=== PATIENT | male | born 1955 | race Caucasian/White ===

== ENCOUNTER → 2023-04-30 07:08 | Outpatient (REF) | payer MEDICARE, OTHER, SELFPAY | LOC: PAVMRI 07:08 | PROVIDERS: ATTENDING PHYSICIAN Orthopaedic Surgery | DX: M25.562 Pain in left knee (principal); M25.561 Pain in right knee | CPT/HCPCS: 73721 ==

== ENCOUNTER 2024-04-27 06:53 | Emergency (ER) | payer MEDICARE, OTHER, SELFPAY ==
[2024-04-27 06:56] VITALS: BP 127/79
--- NOTE | 2024-04-27 08:40 | ED.GENMED ---
History of Present Illness
<Maura Gonzalez PA-C - Last Filed: 04/27/24 16:20>
General
Chief Complaint: Fall
Source: patient
Exam Limitations: none
Time Seen by Provider: 04/27/24 08:28
Nursing documentation reviewed up to this point in time: agreed with
History of Present Illness
History of Present Illness:
69 y/o M with h/o BPH
on baby ASA
mechanical fall this morning 530 am when he went to check on his dog
he missed a step and fell about 6-7 stpes down and grabbed onto the railing but landed on his L hip. he was able to get himself up, no head strike, no LOC, no neck pain, no back pain
but he has a large hematoma to L lateral hip region that feels tight. no bleeding, numbness, weakness, tingling, groin pain
he has no distal nv chaanges
no AC
nothing taken for pain
He had a Mohs surgery to his left scalp 3 weeks ago which is still bandaged, and he also had a lesion removed from his left back 2 days ago that was glued, the wound did not open up and he has no complaints
Past History
<Maura Gonzalez PA-C - Last Filed: 04/27/24 16:20>
Past History
ED Past Medical History: Hypercholesterolemia and Other (prostate)
ED Past Surgical History: Orthopedic
Social History
Tobacco: Non-smoker
Family History
Family History: CAD
Review of Systems
<SHAINA Larose Last Filed: 04/27/24 16:20>
Review of Systems
Allergies reviewed?: Yes
All Other Systems: Not applicable
Phy Exam
<SHAINA Larose Last Filed: 04/27/24 16:20>
Physical Exam
Physical Exam:
GENERAL: Alert , in no apparent distress
HEAD: NCAT
Scalp lesion bandaged left frontal
NECK: no midline tenderness, active ROM intact, no paraspinal muscle tenderness;
EYE: pupils equal and reactive, EOMs intact.
ENT: o/p clr, mmm. no hemotympanum
CARDIAC: Regular rate and rhythm, no edema
LUNGS: Clear breath sounds bilaterally, no acute respiratory distress, no wheezes/rales/rhonchi
ABDOMEN: Soft, without focal tenderness, no r/g, no cvat no other signs of trauma
NEUROLOGICAL: Alert and oriented, no focal neuro deficits, CN intact, 5/5 strength, sensation intact
SKIN: Warm and dry,
Long incision left upper back closed and not bleeding and nontender
MUSCULOSKELETAL: On inspection patient has a large hematoma measuring about 20 x 15 cm to the left lateral greater trochanter region which is firm, the compartment of the thigh and distal lower extremity are soft, he is neurovascularly intact with a
strong femoral and DP pulse, I am able to range his hip, he said discomfort with internal and external rotation but no significant pain
No other signs of trauma
PSYCH: Normal and appropriate interaction.
Course
<Maura Gonzalez PA-C - Last Filed: 04/27/24 16:20>
Orders/Labs/Results
Orders:
Orders
04/27/24 07:04
CR Femur - Left Min 2 Vw Urgent
Comment:
Reason For Exam: fall, swelling, pain
CR Pelvis - 1 Or 2 Views Urgent
Comment:
Reason For Exam: fall, swelling, pain
04/27/24 08:40
CT Lower Ext W/iv Cont Lt Urgent
Comment:
Reason For Exam: L lateral hip hematoma fall
04/27/24 08:45
Acetaminophen [Tylenol] 650 mg PO NOW STA
04/27/24 08:47
Complete Blood Count/With Diff Urgent
Comprehensive Metabolic Panel Urgent
PTT Urgent
Prothrombin Time Urgent
04/27/24 13:56
H&H Urgent
Abnormal Lab Results
04/27/24
08:47
WBC 11.4 H 10^3/uL
(4.8-10.8)
MCH 31.8 H pg
(27.0-31.0)
MPV 10.6 H fL
(7.4-10.4)
Absolute Neuts (auto) 10.0 H 10^3/uL
(1.4-6.5)
Absolute Lymphs (auto) 0.7 L 10^3/uL
(1.2-3.4)
Neutrophils % 88.1 H %
(42.2-75.2)
Lymphocytes % 6.3 L %
(20.5-51.1)
BUN 23 H mg/dl
(9-20)
Glucose 110 H mg/dl
(70-99)
04/27/24 13:56
04/27/24 08:47
Vital Signs
Initial and Last Documented VS:
Initial Vital Signs
Temp Pulse Resp BP Pulse Ox
36.6 C 95 18 127/79 98
04/27/24 06:56 04/27/24 06:56 04/27/24 06:56 04/27/24 06:56 04/27/24 06:56
Last Documented Vital Signs
Temp Pulse Resp BP Pulse Ox
36.6 C 95 18 128/76 96
04/27/24 06:56 04/27/24 06:56 04/27/24 06:56 04/27/24 14:00 04/27/24 14:15
<Shivam Mahmood MD - Last Filed: 04/27/24 08:50>
Orders/Labs/Results
Orders:
Orders
04/27/24 07:04
CR Femur - Left Min 2 Vw Urgent
Comment:
Reason For Exam: fall, swelling, pain
CR Pelvis - 1 Or 2 Views Urgent
Comment:
Reason For Exam: fall, swelling, pain
04/27/24 08:40
CT Lower Ext W/iv Cont Lt Urgent
Comment:
Reason For Exam: L lateral hip hematoma fall
04/27/24 08:45
Acetaminophen [Tylenol] 650 mg PO NOW STA
04/27/24 08:47
Complete Blood Count/With Diff Urgent
Comprehensive Metabolic Panel Urgent
PTT Urgent
Prothrombin Time Urgent
04/27/24 13:56
H&H Urgent
Abnormal Lab Results
04/27/24
08:47
WBC 11.4 H 10^3/uL
(4.8-10.8)
MCH 31.8 H pg
(27.0-31.0)
MPV 10.6 H fL
(7.4-10.4)
Absolute Neuts (auto) 10.0 H 10^3/uL
(1.4-6.5)
Absolute Lymphs (auto) 0.7 L 10^3/uL
(1.2-3.4)
Neutrophils % 88.1 H %
(42.2-75.2)
Lymphocytes % 6.3 L %
(20.5-51.1)
BUN 23 H mg/dl
(9-20)
Glucose 110 H mg/dl
(70-99)
04/27/24 13:56
04/27/24 08:47
Vital Signs
Initial and Last Documented VS:
Initial Vital Signs
Temp Pulse Resp BP Pulse Ox
36.6 C 95 18 127/79 98
04/27/24 06:56 04/27/24 06:56 04/27/24 06:56 04/27/24 06:56 04/27/24 06:56
Last Documented Vital Signs
Temp Pulse Resp BP Pulse Ox
36.6 C 95 18 128/76 96
04/27/24 06:56 04/27/24 06:56 04/27/24 06:56 04/27/24 14:00 04/27/24 14:15
<Maura Gonzalez PA-C - Last Filed: 04/27/24 16:20>
MDM/Problems Addressed
Differential Diagnosis Includes:
hematoma, active hemorrhage, fracture
MDM/Problems Addressed:
9-year-old male not anticoagulated but on a baby aspirin presents for a left hip swelling after mechanical fall down about 6 steps landing on the hip. He did not strike his head or back. He has been able to get up and walk on it but he had a
developing hematoma that is rather large. He is not having any paresthesias, cold foot, or significant pain with movement. On exam he does have about a 20 x 15 cm size hematoma with a central area of ecchymosis, it is firm but the compartment in
the posterior thigh and distally is all normal. He is neurovascularly intact. He was seen by the ED attending. The x-rays were independently reviewed by me and no fracture was identified. I am aware that he is not anticoagulated but given his
degree of swelling just a few hours after the injury we did do a CT with IV contrast which does show a large hematoma with a small amount of active hemorrhage. This was discussed with the patient as well as with Dr. Mahmood.
The patient was offered an observation admission. He felt comfortable going home but his was a little nervous. We did repeat his H&H which was over 4 hours from the initial CBC, his initial hemoglobin was 15.0 and his second hemoglobin was
14.6. I wisam a line around the hematoma and it has not expanded, and has been wrapped in a compression dressing since he arrived except for time when he had ice on it.
With this the patient did feel reassured that would like to go home but will return for any signs of compartment syndrome which was discussed with the patient
<Maura Gonzalez PA-C - Last Filed: 04/27/24 16:20>
*Critical Care Note
Total Time (30-74mins, 75-104mins- exclusive of procedures): Not Applicable
ED Attending Note
<Maura Gonzalez PA-C - Last Filed: 04/27/24 16:20>
-
Portions of this chart may have been created with voice recognition software.� Occasional wrong word or��sound alike� substitutions may have occurred due to the inherent limitations of voice recognition software.
<Shivam Mahmood MD - Last Filed: 04/27/24 08:50>
ED Attending Note
Patient seen and examined by attending physician: Yes
ED Attending Note:
I have seen and evaluated the patient with a [id number] encounter. I have spoken to the advance practicer provider and involved in the medical history, the physical exam, medical decision making.
Evaluation and management service: agree unless noted differently below.
Results interpretation: agree unless noted differently below.
Focused HPI: 69-year-old male with history as noted presents for evaluation after a fall down about 5 steps. Landed on his left hip. He did catch himself did not hit his head or sustain any other serious injuries but he has a lot of pain and
swelling in his left lateral hip and came to the ER for assessment. He has been able to walk/bear weight. Denies headache, neck pain, back pain, rib pain or any other complaints. He is on aspirin but no other blood thinners.
Physical exam: Awake alert no distress. He has prior Mohs surgery on left forehead and healing incision on left back from dermatologic excision. He has no signs of trauma the head. He has no signs of trauma to the chest, abdomen, back. No
tenderness in the ribs, abdomen, back or flank. He has no tenderness in the cervical spine. His upper extremities are atraumatic. On exam of his left lower extremity has a large hematoma left lateral hip over the greater trochanter. Bruising
this area and tenderness. No signs of trauma the rest of the extremities. Allows for full range of motion of the left hip. Strong distal pulse left lower extremity DP and PT.
Medical Decision Makin-year-old male presents for evaluation of left hip pain and swelling after a fall. X-rays in triage of the pelvis and femur reviewed by me showed no acute fracture. Given rapid progression and large hematoma on exam we
will check CT to rule out any active extravasation. Place Srinivas wrap for compression. Reassess after above.
Discharge Plan
Departure
Patient Disposition: Home (Routine Discharge)
Date of Disposition: 04/27/24
Time of Disposition: 14:44
Patient with high blood pressure during this ER visit?: No
Condition: Fair
Covid-19: Not Applicable
Discharge Problem:
Hematoma of left hip
Instructions: Minor contusion - ED discharge instructions, Contusion
Prescriptions:
No Action
atorvastatin 40 mg Tablet
40 mg PO DAILY
aspirin 81 mg Tablet
81 mg PO DAILY
diltiazem HCl 120 mg Capsule,Extended Release 24hr
120 mg PO DAILY Qty: 30 0RF
tamsulosin [Flomax] 0.4 mg Capsule
0.4 mg PO HS Qty: 0 0RF
finasteride 5 mg Tablet
5 mg PO HS Qty: 0 0RF
Referrals:
NONE,* [Family Provider] -
Activity Restrictions/Additional Instructions:
YOU HAVE A LARGE HEMATOMA FROM YORU FALL BUT NO UNDERLYING FRACTURE
PLEASE WATCH YOUR SWELLING VERY CLOSELY
THERE IS A SMALL AMOUNT OF ACTIVE BLEEDING WITHIN THE CENTER OF THE HEMATOMA - IF YOUR SWELLING GETS LARGER, YOU SHOULD RETURN
YOU CAN ALSO RETUR NFOR NUMBNESS/TINGLING/WEAKNESS IN THE LEG, SEVERE PAIN IN THE LEG, COLOR CHANGE/COOLNESS, ETC
OTHERWISE TYLENOL EVERY 6 HOURS NEEDED FOR PAIN
AVOID IBUPROFEN FOR NOW
ICE OFF AND ON 10-20 MINUTES AND THEN WRAP IT TIGHTLY
FOLLOW UP WITH YOUR DOCTOR NEEDED.
Interventions
Interventions:
*Risk Screen - Suicide Last Done: 04/27/24 06:56
*General Assessment Last Done: 04/27/24 06:56
*Neglect/Abuse Screening Last Done: 04/27/24 15:07
ED- Fall Risk Assessment Last Done: 04/27/24 15:07
*ED COVID-19 Vaccine History Last Done: 04/27/24 06:56
*Nursing Disposition Last Done: 04/27/24 15:07
ED-Musculoskeletal Assessment Last Done: 04/27/24 08:59
ED- Neurological Assessment Last Done: 04/27/24 08:59
ED-Skin Assessment Last Done: 04/27/24 09:00
Discharge Date and Time
Discharge Date/Time: 04/27/24 15:19
Print Language: [id number]
[2024-04-27] MEDS: TYLENOL 650 MG PO (08:53)
[2024-04-27 08:59] VITALS: BMI 24.3
[2024-04-27 09:06] LABS: % Basophils 0.3 % (0-2); % Eosinophils 0.2 % (0-6); % Immature Granulocytes 0.4 % (0-0.5); % Lymphocytes 6.3 % (20.5-51.1); % Monocytes 4.7 % (1.7-9.3); % Neutrophils 88.1 % (42.2-75.2); Absolute Lymphocytes 0.7 10^3/uL (1.2-3.4); Absolute Monocytes 0.5 10^3/uL (0.1-0.6); Hematocrit 43.6 % (39.0-52.0); Mean Corp Hgb Conc. 34.4 g/dL (33.0-37.0); Mean Corpuscular Hgb 31.8 pg (27.0-31.0); Mean Corpuscular Volume 92.4 fL (80.0-94.0); Mean Platelet Volume 10.6 fL (7.4-10.4); Nucleated Red Blood Cells % 0 % (-); Platelet Count 184 10^3/uL (130-400); Red Blood Cell Count 4.72 10^6/uL (4.70-6.10); Red Cell Dist. Width 12.5 % (11.5-14.5); White Blood Cell Count 11.4 10^3/uL (4.8-10.8)
[2024-04-27 09:10] LABS: INR 0.98; PT 13.3 Sec (11.4-14.6)
[2024-04-27 09:11] LABS: APTT 27.8 Sec (23.4-35.0)
[2024-04-27 09:13] LABS: ALT (SGPT) 36 U/L (0-50); AST (SGOT) 31 U/L (17-59); Albumin 4.7 g/dl (3.5-5.0); Alkaline Phosphatase 52 U/L (38-126); Blood Urea Nitrogen 23 mg/dl (9-20); Calcium 9.4 mg/dl (8.4-10.2); Carbon Dioxide 23 mmol/L (22-30); Chloride 105 mmol/L (98-107); Estimated Creatinine Clearance 84 ml/min; Glucose 110 mg/dl (70-99); Potassium 4.8 mmol/L (3.5-5.1); Sodium 138 mmol/L (135-145); Total Protein 6.7 g/dl (6.3-8.2); eGFR > 60.00
[2024-04-27 11:05] VITALS: BP 138/79
[2024-04-27 12:00] VITALS: BP 126/83
[2024-04-27 13:00] VITALS: BP 113/86
[2024-04-27 14:00] VITALS: BP 128/76
[2024-04-27 14:11] LABS: Hematocrit 42.3 % (39.0-52.0); Hemoglobin 14.6 g/dL (13.0-18.0)
== END 2024-04-27 15:19 | disposition home or self-care (01) ==
LOC: EMR 06:53
PROVIDERS: Physician Assistant; EMERGENCY PHYSICIAN Emergency Medicine
DX: S70.02XA Contusion of left hip, initial encounter (principal); W10.9XXA Fall (on) (from) unspecified stairs and steps, initial encounter; E78.00 Pure hypercholesterolemia, unspecified; N40.0 Benign prostatic hyperplasia without lower urinary tract symptoms; Z79.82 Long term (current) use of aspirin; Z98.890 Other specified postprocedural states
CPT/HCPCS: 99284; 72170; 73552; 73701; 80053; 85014; 85018; 85025; 85610; 85730; Q9967